=== PATIENT | female | born 1955 | race Caucasian/White ===

== ENCOUNTER 2018-11-21 08:09 | Day surgery (SDC) | payer MEDICAID, MEDICARE ==
[2018-11-21] MEDS ORDERED: Midazolam 1 MG/ML 2 ML SDV ONE (08:52)
[2018-11-21] MEDS ORDERED: Propofol 200 MG/20 ML SDV ONE (08:52)
[2018-11-21] MEDS ORDERED: fentaNYL 100 MCG/2 ML SDV ONE (08:52)
[2018-11-21] MEDS ORDERED: Atenolol 25 MG Tab PO ONE (09:00)
[2018-11-21] MEDS ORDERED: Lactated Ringers 1,000 ML IV ONE (09:15)
[2018-11-21] MEDS ORDERED: Cyanocobalamin (Vitamin B12) 1,000 MCG/ML SDV IM ONE (09:30)
[2018-11-21] MEDS ORDERED: Glycopyrrolate 0.2 MG/ML 2 ML SDV IVPUSH ONE (09:45)
[2018-11-21] MEDS ORDERED: Ampicillin/Sulbactam Na 1.5 GM in Sodium Chloride 0.9% 50 ML IV ONE ×2 (10:03→10:15)
[2018-11-21] MEDS ORDERED: MVI, Adult with Vitamin K 10 ML, Thiamine 200 MG, Chromium/Copper/Mang/Selen/Zn 1 ML in... IV ONE ×4 (10:15)
[2018-11-21 12:22] VITALS: BP 111/68; PULSE 64
--- NOTE | 2018-11-23 18:18 | OR ---
DATE OF PROCEDURE: 11/21/2018 PREOPERATIVE DIAGNOSIS: Upper and midabdominal pain. POSTOPERATIVE DIAGNOSIS: Upper and midabdominal pain associated with normal upper GI endoscopy, status post Austin-en-Y gastric bypass. OPERATIVE PROCEDURE: Upper GI endoscopy. ANESTHESIA: IV sedation. INDICATION FOR PROCEDURE: This is a 63-year-old status post a Austin-en-Y gastric bypass done in 2003. Recently, she has had postprandial abdominal discomfort, complaining of some upper abdominal pain, but also midabdominal pain. CT scan did show some dilated small bowel loops suggestive of a possible partial small bowel obstruction. The plan is to proceed with upper GI endoscopy to evaluate that end of the gastric bypass. Potential risks of the procedure including bleeding and perforation were discussed, and the patient wishes to proceed. DETAILS OF PROCEDURE: The patient was taken to the operating room and placed in a left lateral decubitus position. IV sedation was administered, after which, the upper GI endoscope was passed orally through the length of the esophagus and into the gastric pouch, and from there through the gastrojejunostomy roughly 20 cm into the Austin limb. Findings were entirely normal. There were no areas of inflammation or stricturing during the entire course of the exam, and the scope was then withdrawn. The above findings were reconfirmed. The patient will most likely be affected by a partial bowel obstruction. At this point, we will obtain an upper GI x-ray later this week or next week with small bowel follow-through and see her back following that to decide whether or not we need to proceed with an exploration. Shahid Fatima MD /[id number]
== END 2018-11-21 12:30 | disposition home or self-care (01) ==
LOC: JP.SDS 08:09
PROVIDERS: ATTEND Surgery
DX: R10.10 Upper abdominal pain, unspecified (principal); R10.13 Epigastric pain; K21.9 Gastro-esophageal reflux disease without esophagitis; E03.9 Hypothyroidism, unspecified; F17.200 Nicotine dependence, unspecified, uncomplicated; Z98.84 Bariatric surgery status; Z91.048 Other nonmedicinal substance allergy status; Z91.09 Other allergy status, other than to drugs and biological substances
CPT/HCPCS: 43235; A9270; J0287; J2250; J2704; J3010; J3411; J3420; J3490; J7050; J7120

== ENCOUNTER 2018-12-11 05:12 | Inpatient (IN) | payer MEDICARE ==
[2018-12-11] MEDS ORDERED: Scopolamine 1.5 MG Transdermal Patch TOP ONE (05:26)
[2018-12-11] MEDS ORDERED: Celecoxib 200 MG Cap PO ONE (05:26)
[2018-12-11] MEDS ORDERED: Acetaminophen 500 MG Tab PO ONE (05:27)
[2018-12-11] MEDS ORDERED: Dextrose 5%-Lactated Ringers 1,000 ML IV SCH ×2 (05:30→11:00)
[2018-12-11] MEDS ORDERED: Meropenem 500 MG SDV ONE (06:19)
[2018-12-11] MEDS ORDERED: cefOXitin 2 GM in Sodium Chloride 0.9% 50 ML IV ONE (06:30)
[2018-12-11] MEDS ORDERED: Albuterol/Ipratropium 3.0-0.5 MG/3 ML Neb Soln NEB ONE (06:58)
[2018-12-11] MEDS ORDERED: Dexamethasone 4 MG/ML SDV ONE (07:10)
[2018-12-11] MEDS ORDERED: fentaNYL 250 MCG/5 ML SDV ONE (07:10)
[2018-12-11] MEDS ORDERED: Glycopyrrolate 0.2 MG/ML 5 ML MDV ONE (07:10)
[2018-12-11] MEDS ORDERED: Rocuronium 50 MG/5 ML Vial ONE (07:10)
[2018-12-11] MEDS ORDERED: Ondansetron 4 MG/2 ML SDV ONE (07:10)
[2018-12-11] MEDS ORDERED: Neostigmine Methylsulfate 1 MG/ML 5 ML Syringe ONE (07:10)
[2018-12-11] MEDS ORDERED: Succinylcholine 200 MG/10 ML MDV ONE (07:10)
[2018-12-11] MEDS ORDERED: Propofol 200 MG/20 ML SDV ONE (07:10)
[2018-12-11] MEDS ORDERED: Ketamine 50 MG in Sodium Chloride 0.9% 49.5 ML IV SCH (07:30)
[2018-12-11] MEDS ORDERED: Ketamine 500 MG/5 ML MDV IV SCH (07:30)
[2018-12-11] MEDS ORDERED: Ropivacaine 30 ML, dexAMETHasone 8 MG, EPINEPHrine 0.4 MG, Sodium Chloride 0.9% 47.6 ML NERVRT SCH ×4 (07:30)
[2018-12-11] MEDS ORDERED: Lidocaine 2% 100 MG/5 ML Syringe IVPUSH SCH (08:00)
[2018-12-11] MEDS: Lidocaine 0.4%/D5W 2 GM/500 ML BAG IV SCH (11:56)
[2018-12-11] MEDS ORDERED: Metoclopramide 10 MG/2 ML SDV IVPUSH PRN (12:00)
[2018-12-11] MEDS ORDERED: diphenhydrAMINE 50 MG/ML SDV IVPUSH PRN (12:00)
[2018-12-11] MEDS ORDERED: Ondansetron 4 MG/2 ML SDV IVPUSH PRN (12:00)
[2018-12-11] MEDS ORDERED: hydrOXYzine HCl 100 MG/2 ML SDV IM PRN (12:00)
[2018-12-11] MEDS ORDERED: Labetalol 20 MG/4 ML Syringe IVPUSH PRN (12:00)
[2018-12-11] MEDS ORDERED: HYDROmorphone 1 MG/ML Syringe IV PRN (12:00)
[2018-12-11] MEDS: Acetaminophen 325 MG Tab PO SCH ×2 (12:36→18:08)
[2018-12-11] MEDS: HYDROmorphone 0.5 MG/0.5 ML Syringe IVPUSH PRN ×3 (12:37→20:50)
[2018-12-11] MEDS: Pantoprazole 40 MG Vial IVPUSH SCH (12:39)
[2018-12-11] MEDS: cefOXitin 2 GM in Sodium Chloride 0.9% 50 ML IV SCH ×2 (12:46→18:10)
[2018-12-11] MEDS: Dextrose 5%-Lactated Ringers 1,000 ML IV SCH (12:46)
[2018-12-11] MEDS: MVI, Adult with Vitamin K 10 ML, Thiamine 200 MG, Chromium/Copper/Mang/Selen/Zn 1 ML in... IV SCH ×4 (15:12)
[2018-12-11] MEDS: Heparin Sodium 5,000 Units/ML Vial SUBCUT SCH (20:49)
[2018-12-12] MEDS: cefOXitin 2 GM in Sodium Chloride 0.9% 50 ML IV SCH ×4 (00:33→20:20)
[2018-12-12] MEDS: Acetaminophen 325 MG Tab PO SCH ×5 (00:33→23:08)
[2018-12-12] MEDS ORDERED: Iopamidol 612 MG/ML 50 ML SDV PO ONE (04:16)
--- NOTE | 2018-12-12 05:40 | CRLCR ---
Indication: Evaluate Austin-en-Y gastric bypass Technique: KUB 2 view Comparison: None Findings/Impression: : Oral contrast opacifies the distal esophagus, stomach, and bowel. No evidence for extravasation of contrast. Nonspecific bowel gas pattern. Status post left hip arthroplasty. Dictated by Becca Mackey MD @ Dec 12 2018 5:38AM Signed by Dr. Becca Mackey @ Dec 12 2018 5:40AM
[2018-12-12] MEDS: HYDROmorphone 0.5 MG/0.5 ML Syringe IVPUSH PRN (05:41)
[2018-12-12] MEDS: Dextrose 5%-Lactated Ringers 1,000 ML IV SCH (07:27)
[2018-12-12] MEDS: Heparin Sodium 5,000 Units/ML Vial SUBCUT SCH ×2 (07:30→20:24)
[2018-12-12] MEDS: Celecoxib 200 MG Cap PO SCH (07:30)
[2018-12-12] MEDS ORDERED: Dextrose 5%-Lactated Ringers 1,000 ML IV SCH (07:45)
[2018-12-12] MEDS ORDERED: [UNRECOGNIZED DRUG - REMARK] SCH (09:00)
[2018-12-12] MEDS: Lidocaine 0.4%/D5W 2 GM/500 ML BAG IV SCH (10:44)
[2018-12-12] MEDS: Sodium Ferric Gluconate Cmplex 250 MG in Sodium Chloride 0.9% 100 ML IV SCH (10:45)
[2018-12-12] MEDS: Levothyroxine 112 MCG Tab PO SCH ×2 (10:46→10:53)
[2018-12-12] MEDS: Atenolol 25 MG Tab PO SCH (10:47)
[2018-12-12] MEDS: SCOPOLAMINE PATCH CHECK TOP SCH (10:47)
[2018-12-12] MEDS: Pantoprazole 40 MG Vial IVPUSH SCH (13:10)
[2018-12-12] MEDS: HYDROmorphone 2 MG Tab PO PRN ×2 (13:16→23:08)
[2018-12-12] MEDS: MVI, Adult with Vitamin K 10 ML, Thiamine 200 MG, Chromium/Copper/Mang/Selen/Zn 1 ML in... IV SCH ×4 (17:49)
[2018-12-13] MEDS: cefOXitin 2 GM in Sodium Chloride 0.9% 50 ML IV SCH ×2 (00:44→07:28)
[2018-12-13] MEDS: HYDROmorphone 2 MG Tab PO PRN ×2 (03:17→20:49)
[2018-12-13] MEDS: Acetaminophen 325 MG Tab PO SCH ×4 (05:20→23:18)
[2018-12-13] MEDS: Celecoxib 200 MG Cap PO SCH (07:28)
[2018-12-13] MEDS: Heparin Sodium 5,000 Units/ML Vial SUBCUT SCH ×2 (07:28→20:48)
[2018-12-13] MEDS ORDERED: SUMAtriptan 50 MG Tab PO ONE (07:30)
[2018-12-13] MEDS ORDERED: Acetaminophen/Caffeine 500-65 MG Tab PO PRN (07:36)
[2018-12-13] MEDS: Levothyroxine 112 MCG Tab PO SCH (07:47)
[2018-12-13] MEDS: Bisacodyl 5 MG Tab PO SCH ×2 (08:32→21:42)
[2018-12-13] MEDS: Docusate Sodium 100 MG Cap PO SCH ×2 (08:32→21:41)
[2018-12-13] MEDS: SCOPOLAMINE PATCH CHECK TOP SCH (08:33)
[2018-12-13] MEDS: Atenolol 25 MG Tab PO SCH (08:33)
[2018-12-13] MEDS ORDERED: Cyanocobalamin (Vitamin B12) 1,000 MCG/ML SDV IM ONE (09:00)
[2018-12-13] MEDS: Sodium Ferric Gluconate Cmplex 250 MG in Sodium Chloride 0.9% 100 ML IV SCH (10:52)
[2018-12-13] MEDS ORDERED: Pantoprazole 40 MG Delayed-Release Granules 1 Packet PO SCH (11:30)
[2018-12-13] MEDS: MVI, Adult with Vitamin K 10 ML, Thiamine 200 MG, Chromium/Copper/Mang/Selen/Zn 1 ML in... IV SCH ×4 (17:14)
[2018-12-13] MEDS: SUMAtriptan 50 MG Tab PO PRN (20:48)
[2018-12-14] MEDS: Acetaminophen 325 MG Tab PO SCH (06:05)
[2018-12-14] MEDS ORDERED: SYNTHROID 137 MCG PO SCH (07:30)
[2018-12-14] MEDS: Docusate Sodium 100 MG Cap PO SCH (08:45)
[2018-12-14] MEDS: Bisacodyl 5 MG Tab PO SCH (08:45)
[2018-12-14] MEDS: SUMAtriptan 50 MG Tab PO PRN (09:03)
[2018-12-14] MEDS: Celecoxib 200 MG Cap PO SCH (09:04)
[2018-12-14] MEDS: Atenolol 25 MG Tab PO SCH (09:04)
[2018-12-14] MEDS: Heparin Sodium 5,000 Units/ML Vial SUBCUT SCH (09:04)
[2018-12-14 09:05] VITALS: BP 110/80; PULSE 75
--- NOTE | 2018-12-15 08:35 | PN ---
DATE OF SERVICE: 12/12/2018 The patient is postop day #1 for revision of Austin-en-Y gastric bypass. No major problems were noted overnight. Upper GI x-ray looks good. We will switch over to oral pain medications exclusively today and go up to step-3 diet. Her TSH preoperatively was quite low and we will decrease the Synthroid dose from 137 to 112 mcg per day. Otherwise, maximize activity and work with pulmonary toilet. Shahid Fatima MD /[id number]
--- NOTE | 2018-12-15 09:02 | PN ---
DATE OF SERVICE: 12/13/2018 The patient has been afebrile with stable vital signs. Passing little bit of flatus. No bowel movements as of yet. We are working on getting her bowels moving today. She will be getting her second iron infusion as well. Complaining of some headaches. She does take some Imitrex as well as Excedrin Tension Headache capsules and we will restart those, and she will most likely be ready for discharge home tomorrow. Shahid Fatima MD /[id number]
--- NOTE | 2018-12-15 10:02 | DISCH ---
FINAL DIAGNOSES: 1. Partial small bowel obstruction and previous jejunojejunostomy. 2. Extensive intraabdominal adhesions. 3. Bariatric surgery status. 4. History of papillary thyroid carcinoma. 5. Depressed TSH secondary to hyperthyroidism related to thyroid replacement therapy. OPERATIVE PROCEDURES: Done on 12/11/2018, exploratory laparotomy with lysis of adhesions: 1. Revision of jejunojejunostomy component of Austin-en-Y gastric bypass. 2. Placement of Interceed mesh to limit recurrent adhesion formation. SUMMARY: This is a 63-year-old status post previous Austin-en-Y gastric bypass, presenting with postprandial crampy abdominal bloating. CT scan was suggestive of a partial small bowel obstruction, and an upper GI x-ray had relatively slow transit. On the date of admission, the patient underwent exploratory laparotomy, noted to have a markedly distended biliopancreatic limb adjacent to the jejunojejunostomy, that anastomosis was revised, and to prevent recurrent adhesion formation, Interceed mesh placed. Postoperatively, the patient has done well, she moved her bowels. She is tolerating a step-3 diet and will be discharged home on that diet. Follow up will be with [facility] in 1 week. The patient's TSH preoperatively noted to be quite depressed and her Synthroid dose was decreased from 137 mcg to 112 mcg, and she will be set up to have a repeat TSH in 2 months. Otherwise, she will be on Tylenol for pain and remainder of the medications as previously being taken.
--- NOTE | 2018-12-18 14:06 | OR ---
DATE OF PROCEDURE: 12/11/2018 SURGEON: Shahid Fatima MD PREOPERATIVE DIAGNOSIS: Partial small bowel obstruction. POSTOPERATIVE DIAGNOSES: 1. Partial small bowel obstruction at jejunojejunostomy. 2. Extensive intraabdominal adhesions. OPERATIVE PROCEDURES: Exploratory laparotomy with lysis of extensive adhesions and: 1. Revision of jejunojejunostomy component of Austin-en-Y gastric bypass (36232). 2. Placement of Interceed mesh to limit recurrent adhesion formation between the pelvic and abdominal wall and underlying viscera (02960). ANESTHESIA: General. INDICATION FOR PROCEDURE: This is a 63-year-old status post previous Austin-en-Y gastric bypass, presenting with ongoing postprandial crampy abdominal pain and bloating. A CT scan was recently obtained, which showed a picture suggestive of partial small bowel obstruction, and this fits the clinical picture fairly well. The patient is to undergo a limited laparotomy. She has previously placed mesh in the central abdomen. We will try to stay above that area, but otherwise we plan to proceed with a limited laparotomy and lysis of adhesions and bowel resection and/or revision of jejunojejunostomy at the typical location where there would be a problem in this type of case will be planned. Potential risks including bleeding, infection, possibility of leaks from various GI tract closures, bowel obstruction recurring over time, and problems with the mesh becoming infected were all reviewed, and the patient wishes to proceed. DETAILS OF PROCEDURE: The patient was taken to the operating room and placed in a supine position. After general endotracheal anesthesia was induced, a Slavador catheter was inserted and the abdomen prepped and draped. An epigastric incision was made and carried down through the skin and subcutaneous tissue. The vertical midline incision was then brought through the fascia and extended down to the area of the mesh, which extended slightly above the umbilicus. The investing peritoneum and soft tissues around the mesh were potentially not violated so as to minimize chances of any infection. There were quite a bit in the way of adhesions between the omentum and the mesh, which were then taken down with electrocautery and magda. Following this then, the small bowel was examined. The area of the jejunojejunostomy was noted to have, at the point where the biliopancreatic limb was in the anastomosis, marked dilation of this area being dilated up to roughly a tennis ball size, indicating significant obstruction at that location. Given this, the biliopancreatic limb was divided flush with that anastomosis with the GUSTABO stapler and a portion of the biliopancreatic limb was excised with a GUSTABO stapler as well. The underlying mesentery was divided with mesenteric magda and the specimen delivered from the field. The revision of the jejunojejunostomy was then accomplished with anastomosis of the biliopancreatic limb to the small bowel roughly 20 cm distal to the original anastomosis, extending the length of the Austin limb by that roughly 20 cm additional length. This was accomplished with internal firing of the Endo-GUSTABO 60 mm stapler. Common opening was then closed transversely with the GUSTABO stapler as well. Then, the angles of anastomosis were reinforced with 3-0 Vicryl stitch. The mesenteric defect was then with a 2-0 silk stitch to provide some permanency to that closure. The abdomen was irrigated with antibiotic-containing saline solution. The patient was felt to be obviously at high risk for recurrent adhesion formation between the abdominal wall and pelvic wall and the underlying viscera. Interceed mesh was then placed across those areas, and the midline fascia was then approximated with #2 Vicryl stitch, subcutaneous tissue was closed with 2 layers of 3-0 and 4-0 Vicryl stitch deep, and magda for the skin. Dressing was applied, and the patient was taken to the recovery room in satisfactory condition. Of note, the patient received bilateral transversus abdominis plane blocks intraoperatively and also had the midline incision injected with 0.5% Marcaine to facilitate postoperative pain control. Shahid Fatima MD /[id number]
== END 2018-12-14 09:30 | disposition home or self-care (01) | DRG 327 ==
LOC: JP.SDS 05:12 → JP.SDSSCHI 05:12 → JP.MS 09:00 → EDSTATUS 10:30
PROVIDERS: ADMIT Surgery; ATTEND Surgery
PROC: 0D160ZA Bypass Stomach to Jejunum, Open Approach (ICD-10-PCS; principal; 2018-12-11)
PROC: 3E0M05Z Introduction of Adhesion Barrier into Peritoneal Cavity, Open Approach (ICD-10-PCS; 2018-12-11)
DX: K56.51 Intestinal adhesions [bands], with partial obstruction (principal); K91.2 Postsurgical malabsorption, not elsewhere classified; Z98.84 Bariatric surgery status; E03.9 Hypothyroidism, unspecified; I08.0 Rheumatic disorders of both mitral and aortic valves; E66.01 Morbid (severe) obesity due to excess calories; Z68.29 Body mass index [BMI] 29.0-29.9, adult; M19.90 Unspecified osteoarthritis, unspecified site; M81.0 Age-related osteoporosis without current pathological fracture; Z85.850 Personal history of malignant neoplasm of thyroid; E53.8 Deficiency of other specified B group vitamins; E53.9 Vitamin B deficiency, unspecified; E55.9 Vitamin D deficiency, unspecified; Z80.3 Family history of malignant neoplasm of breast; Z80.51 Family history of malignant neoplasm of kidney; Z80.1 Family history of malignant neoplasm of trachea, bronchus and lung; Z80.0 Family history of malignant neoplasm of digestive organs; Z80.8 Family history of malignant neoplasm of other organs or systems; Z79.82 Long term (current) use of aspirin; Z79.890 Hormone replacement therapy; Z79.891 Long term (current) use of opiate analgesic; Z79.899 Other long term (current) drug therapy
CPT/HCPCS: 74240; 88307; 94640; 94762; A9270-GY; C9113; J0171; J0330; J0694; J1100; J1170; J1644; J2001; J2185; J2405; J2704; J2710; J2795; J2916; J3010; J3411; J3420; J3490; J7030; J7042; J7050; J7620-GY; Q9967

== ENCOUNTER 2023-05-20 08:03 | Day surgery (SDC) | payer MEDICARE ==
[2023-05-20] MEDS ORDERED: Lactated Ringers 1,000 ML IV ONE (08:30)
[2023-05-20] MEDS ORDERED: Cyanocobalamin (Vitamin B12) 1,000 MCG/ML SDV IM ONE (09:00)
[2023-05-20] MEDS ORDERED: Propofol 200 MG/20 ML SDV ONE (09:30)
[2023-05-20] MEDS ORDERED: fentaNYL 100 MCG/2 ML SDV ONE (09:30)
[2023-05-20] MEDS ORDERED: MVI, Adult with Vitamin K 10 ML, Thiamine 200 MG, Zinc/Copper/Manganese/Selenium 1 ML i... IV ONE ×4 (09:30)
[2023-05-20 11:46] VITALS: BP 122/60; PULSE 68
== END 2023-05-20 13:00 | disposition home or self-care (01) ==
LOC: JP.SDS 08:03
PROVIDERS: ATTEND Student in an Organized Health Care Education/Training Program
DX: T18.108A Unspecified foreign body in esophagus causing other injury, initial encounter (principal); K21.9 Gastro-esophageal reflux disease without esophagitis; J43.2 Centrilobular emphysema; I10 Essential (primary) hypertension; I25.10 Atherosclerotic heart disease of native coronary artery without angina pectoris; F33.0 Major depressive disorder, recurrent, mild; E66.01 Morbid (severe) obesity due to excess calories; E89.0 Postprocedural hypothyroidism; Z79.899 Other long term (current) drug therapy; Z91.041 Radiographic dye allergy status
CPT/HCPCS: 43215; J2704; J3010; J3411; J3420; J7120; J3490